=== PATIENT | male | born 1980 | race Two or more races ===

== ENCOUNTER → 2016-08-19 | Outpatient (CLI) | payer BC, OTHER ==
[~2016-08-19] MED LIST: ACET-76 PO
== END | disposition home or self-care (01) ==
LOC: STAR 15:13
PROVIDERS: ATTEND Orthopaedic Surgery
DX: Z02.9 Encounter for administrative examinations, unspecified (principal)

== ENCOUNTER 2016-08-23 07:08 | Day surgery (SDC) | payer BC, OTHER ==
[~2016-08-23] VITALS: Ht 182.9 cm; Wt 89.0 kg
[~2016-08-23 07:08] MED LIST changes: +BUPIVACAINE/PF 0.5% ONE; +EPINEPHRINE 1 MG/ML, 1ML ONE; +FENTANYL PF 250 MCG/5ML ONE; +LIDOCAINE/PF 1%, 30ML ONE; +MIDAZOLAM 1 MG/ML, 2ML ONE; +NEOSPORIN OINT, 15GM ONE
[2016-08-23] MEDS ORDERED: ROPIvacaine/PF 0.5%, 20 ML ONE (07:12)
[2016-08-23] MEDS ORDERED: LACTATED RINGERS 1,000 ML IV SCH (07:34)
[2016-08-23] MEDS ORDERED: HYDROcodone/APAP 7.5-325MG/15ML UDC PO PRN (09:00)
[2016-08-23] MEDS ORDERED: MIDAZOLAM 1 MG/ML, 2ML IV PRN (09:00)
[2016-08-23] MEDS ORDERED: PROMETHAZINE 25 MG/ML, 1ML IV PRN (09:00)
[2016-08-23] MEDS ORDERED: HYDROmorphone 1 MG/ML, 1ML IV PRN (09:00)
[2016-08-23] MEDS ORDERED: ONDANSETRON 2MG/ML, 2ML ONE (09:00)
[2016-08-23] MEDS ORDERED: MEPERIDINE/PF 25MG/0.5ML IVPush PRN (09:00)
[2016-08-23] MEDS ORDERED: KETOROLAC 30 MG/1 ML ONE (09:00)
[2016-08-23] MEDS ORDERED: CEFAZOLIN 1,000 MG ONE (09:00)
[2016-08-23] MEDS ORDERED: OXYcodone 5 MG/5 ML ORAL.SOL UDC PO PRN (09:00)
[2016-08-23] MEDS ORDERED: DEXAMETHASONE 4 MG/ML, 1ML ONE (09:00)
[2016-08-23] MEDS ORDERED: PROPOFOL 10 MG/ML, 20ML ONE (09:00)
[2016-08-23] MEDS ORDERED: ACETAMINOPHEN 325 MG TABLET PO PRN (09:00)
[2016-08-23] MEDS ORDERED: ONDANSETRON 2MG/ML, 2ML IVPush PRN (09:00)
[2016-08-23] MEDS ORDERED: ACETAMINOPHEN 650 MG/20.3 ML UDC ONE (10:44)
[2016-08-23] MEDS ORDERED: FENTANYL PF 100 MCG/2ML ONE (10:44)
[2016-08-23] MEDS ORDERED: ACETAMINOPHEN 325 MG TABLET ONE (10:45)
[2016-08-23] MEDS ORDERED: OXYcodone 5 MG/5 ML ORAL.SOL UDC ONE (10:46)
[2016-08-23] MEDS: FENTANYL PF 100 MCG/2ML IV PRN ×3 (10:51→11:10)
[2016-08-23] MEDS ORDERED: HYDROmorphone 2 MG/ML, 1ML ONE (12:35)
[2016-08-23] MEDS ORDERED: OXYcodone/APAP 5/325MG TABLET PO ONE (13:00)
[2016-08-23] MEDS ORDERED: HYDROmorphone 1 MG/ML, 1ML IM ONE (13:00)
== END 2016-08-23 14:40 ==
LOC: OUT 07:08
PROVIDERS: ATTEND Orthopaedic Surgery
DX: S83.512A Sprain of anterior cruciate ligament of left knee, initial encounter (principal); M65.862 Other synovitis and tenosynovitis, left lower leg; X58.XXXA Exposure to other specified factors, initial encounter; Y93.9 Activity, unspecified; Y92.9 Unspecified place or not applicable; Y99.9 Unspecified external cause status
CPT/HCPCS: 29888; C1713; J0171; J0690; J1100; J1170; J1885; J2250; J2405; J2704; J2795; J3010; J3490; J7120

== ENCOUNTER 2018-03-15 14:56 | Outpatient (CLI) | payer OTHER ==
[~2018-03-15 14:56] MED LIST changes: -BUPIVACAINE/PF 0.5% ONE; -EPINEPHRINE 1 MG/ML, 1ML ONE; -FENTANYL PF 250 MCG/5ML ONE; -LIDOCAINE/PF 1%, 30ML ONE; -MIDAZOLAM 1 MG/ML, 2ML ONE; -NEOSPORIN OINT, 15GM ONE
[2018-03-15] MEDS ORDERED: NAPROXEN PO (15:31)
== END 2018-03-15 23:59 | disposition home or self-care (01) ==
LOC: STAR 14:56
PROVIDERS: ATTEND Orthopaedic Surgery
DX: Z02.9 Encounter for administrative examinations, unspecified (principal)

== ENCOUNTER 2018-03-22 07:55 | Day surgery (SDC) | payer OTHER ==
[~2018-03-22] VITALS: Ht 182.9 cm; Wt 92.5 kg
[~2018-03-22 07:55] MED LIST changes: +BUPIVACAINE/PF-EPI 0.5% 1:200K ONE; +LIDOCAINE 1%-EPI 1:100K, 30ML ONE; +NAPROXEN PO; +NEOSPORIN OINT, 15GM ONE
[2018-03-22] MEDS ORDERED: FENTANYL PF 100 MCG/2ML ONE (07:59)
[2018-03-22] MEDS ORDERED: MIDAZOLAM 1 MG/ML, 2ML ONE (07:59)
[2018-03-22 08:21] VITALS: BP 135/89
[2018-03-22] MEDS ORDERED: LACTATED RINGERS 1,000 ML IV SCH (08:25)
[2018-03-22] MEDS ORDERED: COUGH SYRUP PO (08:27)
[2018-03-22] MEDS ORDERED: VITAMIN C PO (08:27)
[2018-03-22] MEDS ORDERED: ACETAMINOPHEN 500 MG TABLET PO ONE (08:30)
[2018-03-22] MEDS ORDERED: ONDANSETRON ODT 8 MG PO ONE (08:30)
[2018-03-22] MEDS ORDERED: GABAPENTIN 300 MG CAPSULE PO ONE (08:30)
[2018-03-22] MEDS ORDERED: ROCURONIUM 10 MG/ML,10ML ONE (09:37)
[2018-03-22] MEDS ORDERED: SUCCINYLCHOLINE 20 MG/ML, 10ML ONE (09:37)
[2018-03-22] MEDS ORDERED: PROPOFOL 10 MG/ML, 20ML ONE (10:10)
[2018-03-22] MEDS ORDERED: LIDOCAINE-MPF 2% ,5ML ONE (10:10)
[2018-03-22] MEDS ORDERED: BUPIVACAINE/PF 0.5% ONE (10:10)
[2018-03-22] MEDS ORDERED: CEFAZOLIN 1,000 MG ONE (10:10)
[2018-03-22] MEDS ORDERED: DEXAMETHASONE 4 MG/ML, 1ML ONE (10:10)
[2018-03-22] MEDS ORDERED: FENTANYL PF 100 MCG/2ML IV PRN (10:30)
[2018-03-22] MEDS ORDERED: OXYcodone 5 MG/5 ML ORAL.SOL UDC PO PRN (10:30)
[2018-03-22] MEDS ORDERED: PROMETHAZINE 25 MG/ML, 1ML IV PRN (10:30)
[2018-03-22] MEDS ORDERED: HYDROmorphone 2 MG/ML, 1ML IVPush PRN (10:30)
[2018-03-22] MEDS ORDERED: MIDAZOLAM 1 MG/ML, 2ML IV PRN (10:30)
[2018-03-22] MEDS ORDERED: SCOPOLAMINE PATCH, 1.5MG PATCH.TD72 TD PRN (10:30)
[2018-03-22] MEDS ORDERED: ALBUTEROL/IPRATROPIUM 2.5MG/0.5MG, 3 ML NPPB PRN (10:30)
[2018-03-22] MEDS ORDERED: ONDANSETRON 2MG/ML, 2ML IV PRN (10:30)
== END 2018-03-22 12:50 | disposition home or self-care (01) ==
LOC: OUT 07:55
PROVIDERS: ATTEND Orthopaedic Surgery
DX: S43.432A Superior glenoid labrum lesion of left shoulder, initial encounter (principal); X58.XXXA Exposure to other specified factors, initial encounter; Y93.89 Activity, other specified; Y92.89 Other specified places as the place of occurrence of the external cause; Y99.8 Other external cause status; M94.212 Chondromalacia, left shoulder; M65.812 Other synovitis and tenosynovitis, left shoulder
CPT/HCPCS: 29823; 64415; J0330; J0690; J1100; J2250; J2704; J3010; J3490; J7120; Q0162